=== PATIENT | male | born 1990 | race Two or more races ===

== ENCOUNTER 2023-03-27 22:14 | Emergency (ER) | payer BC, OTHER ==
[~2023-03-27] VITALS: Ht 177.8 cm; Wt 111.0 kg
[2023-03-28] MEDS ORDERED: KETOROLAC TROMETH 30 MG/ML 1ML VIAL IM ONE (00:30)
[2023-03-28 00:32] VITALS: BP 135/90
== END 2023-03-28 00:38 | disposition home or self-care (01) ==
LOC: ER 22:14
DX: M54.59 Other low back pain (principal); M54.2 Cervicalgia; I10 Essential (primary) hypertension; E11.9 Type 2 diabetes mellitus without complications; Z88.1 Allergy status to other antibiotic agents
CPT/HCPCS: 70450; 72125; 72131; 96372; 99285; J1885